=== PATIENT | female | born 1960 | race Caucasian/White ===

== ENCOUNTER → 2018-01-07 | Outpatient (CLI) | payer OTHER ==
[2016-05-23 17:06] VITALS: BMI 36.9
[~2018-01-07] MED LIST: ACET500T68 PO; ASC500 PO; ASPI-1471 PO; ASPI-757 PO; CHOL200074 PO; CHON250C2 PO; EZET1TAB55 PO; EZET1TAB86 PO; FISH OIL1 CAP PO; FLAX100041 PO; GARL10005 PO; GLUC500C29 PO; MELO-207 PO; MULT1CAP41 PO; OMEP-125 PO; OXYC-869 PO; POTA99TA13 PO; REGADENOSON 0.4 MG/5 ML SYR ONE; TRAZ50TA34 PO; VITE400 PO; [UNRECOGNIZED DRUG - CODE] PO; [UNRECOGNIZED DRUG - CODE] PO
--- NOTE | 2018-01-07 14:53 | RADIOLOGY IMAGING REPORT ---
FACILITY: [facility] PATIENT NAME: Dinora Kimbrough : 1960 MR: [id number] V: [id number] EXAM DATE: ORDERING PHYSICIAN: MICAH LYNCH TECHNOLOGIST: Location: [facility] Patient: Dinora Kimbrough : 1960 Visit/Account:[id number] Date of Sevice: 01/07/2018 EXAMINATION: Single isotope SPECT imaging with regadenoson infusion and gated SPECT imaging. DATE OF EXAMINATION: 01/07/2018. DATE OF INTERPRETATION: 01/07/2018. REQUESTING PHYSICIAN: MICAH LYNCH. INDICATION: The patient is a 57-year-old female evaluated for shortness of breath. PROCEDURE: After informed consent the patient received an intravenous injection of 12.6 mCi of Tc-99 m sestamibi followed at an appropriate time interval by rest imaging. The patient then subsequently received an intravenous infusion of 0.4 mg of regadenoson per protocol without complication. Resting heart rate was 55 bpm with a peak heart rate of 85 bpm. Blood pressure at rest was 150 / 94 and fol lowing infusion was 162 / 93. Baseline EKG demonstrates sinus rhythm. There were no EKG changes of ischemia following infusion. Symptoms were nonspecific. The patient then received an intravenous in jection of 30.6 mCi of Tc-99m sestamibi followed by stress imaging. RAW DATA: Examination of the summed raw data revealed a good quality study. MYOCARDIAL PERFUSION: The tomographic images demonstrate normal myocardial perfusion with no evidenc e of infarct or ischemia. There is no TID. GATED IMAGES: The gated images demonstrate hyperdynamic ejection fraction >70% with normal wall lyssa on and thickening. IMPRESSION: 1. Nondiagnostic Lexiscan stress ECG 2. Normal myocardial perfusion scan. 3. Hyperdynamic LV systolic function; LVEF >70%. 4. Based on the results of this exam, the patient appears to be at low risk for future cardiovascular events. Report Dictated By: Sameer Bernard at 01/07/2018 2:44 PM Report E-Signed By: Sameer Bernard at 01/07/2018 2:48 PM WSN:[id number]
--- NOTE | 2018-01-08 09:17 | RT STRESS TEST REPORT ---
FACILITY: [facility] [place] PATIENT NAME: LEENA GLORIA : [id number] MR: [id number] V: [id number] EXAM DATE: ORDERING PHYSICIAN: MICAH LYNCH TECHNOLOGIST: Olu Acquisition Time: 2018-01-07 09:34:25 Total Exercise Time: 00:01:00 Test Indications: SOB Medications: See nuclear med sheet Protocol: LEXISCAN Max HR: 085 BPM 52% of Pred: 161 BPM Max BP: 162/093 mmHG Max Work Load: 1.0 METS Impression No EKG changes to suggest ischemia Nuclear medicine report to follow seperately Confirmed by HERB BULL ([id number]) on 01/08/2018 9:16:34 AM Referred By: Overread By: HERB BULL
== END ==
LOC: RESP 01:54
PROVIDERS: ATTEND Family Medicine
DX: R06.02 Shortness of breath (principal); R06.00 Dyspnea, unspecified
CPT/HCPCS: 78452; 93017; A9500; J2785